=== PATIENT | female | born 1970 | race Caucasian/White ===

== ENCOUNTER 2017-08-20 19:05 | Emergency (ER) | payer OTHER ==
[~2017-08-20] VITALS: Ht 172.7 cm; Wt 132.4 kg
[~2017-08-20 19:05] MED LIST: ALPRAZOLAM; CARISOPRODOL 3350 MG; LISINOPRIL20 MG; LOPRESSOR; LORCET PLUS 7.51 TA1; PHENERGAN 25 MG25 M1 PO
[2017-08-20 19:59] LABS: URINE BILIRUBIN NEGATIVE (Negative); URINE BLOOD NEGATIVE (Negative); URINE CLARITY CLEAR; URINE COLOR YELLOW; URINE GLUCOSE-RANDOM NEGATIVE (Negative); URINE KETONES NEGATIVE (Negative); URINE LEUKOCYTES-REFLEX 1+ (Negative); URINE NITRITE-REFLEX NEGATIVE (Negative); URINE PROTEIN NEGATIVE (Negative); URINE SPECIFIC GRAVITY <= 1.005 (1.005-1.030); URINE UROBILINOGEN 0.2 E.U./dl (0.2-1.0)
[2017-08-20 20:13] LABS: ABSOLUTE BASOPHILS 0.1 thou/uL (0.0-0.2); ABSOLUTE EOSINOPHILS 0.1 thou/uL (0.0-0.7); ABSOLUTE LYMPHOCYTES 2.8 thou/uL (0.8-5.3); ABSOLUTE MONOCYTES 0.6 thou/uL (0.0-1.2); ABSOLUTE NEUTROPHILS 6.1 thou/uL (1.6-8.1); BASOPHILS 0.5 %; EOSINOPHILS 1.1 %; HEMATOCRIT 43.3 % (37.0-47.0); HEMOGLOBIN 14.7 gm/dL (12.0-15.0); LYMPHOCYTES 28.8 %; MCH 29.4 pg (26.0-34.0); MCHC 33.9 g/dL (28.0-37.0); MCV 86.9 fL (80.0-100.0); MONOCYTES 6.4 %; MPV 10.4 fl. (7.2-11.1); NUCLEATED RBCS 0 /100WBC; PLATELET COUNT* 209 thou/uL (150-400); POLYS 63.2 %; RBC 4.99 mil/uL (4.20-5.00); RDW-CV 13.5 % (10.5-14.5); WBC 9.7 thou/uL (4.0-11.0)
[2017-08-20 20:17] LABS: CRYSTALS None Seen /LPF (None Seen); MUCUS None Seen strn/LPF (None Seen); SQUAMOUS >10 Many /LPF (0-3)
[2017-08-20 20:18] LABS: CASTS None Seen /LPF (None Seen); URINE RBC None Seen /HPF (0-2); URINE WBC-REFLEX 0-5 Rare /HPF (0-5)
[2017-08-20 20:21] LABS: INR 1.1; PROTIME 10.5 Seconds (9.20-11.50)
[2017-08-20 20:22] LABS: ANION GAP 11 mmol/L (7-16); BUN 12 mg/dL (7-18); CALCIUM 9.1 mg/dL (8.5-10.1); CHLORIDE 100 mmol/L (98-107); CO2 28 mmol/L (21-32); CREATININE 0.7 mg/dL (0.6-1.3); GLUCOSE 101 mg/dL (70-99); POTASSIUM 3.4 mmol/L (3.5-5.1); SODIUM 139 mmol/L (136-145)
[2017-08-20 20:32] LABS: ALKALINE PHOSPHATASE 102 U/L (46-116); LIPASE 72 U/L (73-393); NT-PRO BRAIN NAT PEPTIDE 24 pg/mL (<300); SGOT 30 U/L (15-37); SGPT 82 U/L (30-65); TOTAL BILIRUBIN 0.4 mg/dL (<0.1-1.0); TROPONIN-I LEVEL <0.06 ng/mL (<0.06)
[2017-08-20 21:02] VITALS: BP 144/88
--- NOTE | 2017-08-21 13:01 | EKG ---
[place] [address] ELECTROCARDIOGRAM REPORT Name: FRANK PIKE Room: [facility]#: [id number] Admission: 08/20/17 Attend Phys: Discharge: 08/20/17 Date of : 72 Report #: [id number] THIS REPORT FOR: //name// [facility] ED Test Date: 2017-08-20 Test Time: 19:10:44 Pat Name: FRANK PIKE Department: Room: Gender: F Transfer Station Operator: KGRISGBY : 1970 Requested By: Alisha Blood Order Number: [id number] MD: Willi Arellano Measurements Intervals [place] Rate: 94 P: 33 SD: 61 QRS: 15 QRSD: 97 T: 3 QT: 364 QTc: 456 Interpretive Statements Sinus rhythm Short SD interval Artifact in lead(s) I,II,aVR,aVL,aVF No previous ECG available for comparison Electronically Signed On 08-21-2017 13:00:57 GASOLINE ATTENDANT by Willi Arellano [email or web address] <ELECTRONICALLY SIGNED> By: Willi Arellano MD, [facility] 08/21/17 1300 1910 09 Willi Arellano MD, FACC /EPI
== END 2017-08-20 21:02 | disposition home or self-care (01) ==
LOC: M.ERS 19:05
PROVIDERS: Emergency Medicine
DX: F41.9 Anxiety disorder, unspecified (principal); R07.89 Other chest pain; I10 Essential (primary) hypertension; F17.200 Nicotine dependence, unspecified, uncomplicated; Z88.1 Allergy status to other antibiotic agents

== ENCOUNTER 2019-03-06 06:06 | Inpatient (IN) | payer OTHER ==
[2019-02-23 09:20] LABS: ABSOLUTE BASOPHILS 0.1 thou/uL (0.0-0.2); ABSOLUTE EOSINOPHILS 0.1 thou/uL (0.0-0.7); ABSOLUTE LYMPHOCYTES 2.3 thou/uL (0.8-5.3); ABSOLUTE MONOCYTES 0.5 thou/uL (0.0-1.2); ABSOLUTE NEUTROPHILS 4.5 thou/uL (1.6-8.1); EOSINOPHILS 1.5 %; HEMATOCRIT 43.4 % (37.0-47.0); HEMOGLOBIN 14.8 gm/dL (12.0-15.0); LYMPHOCYTES 30.5 %; MCH 29.7 pg (26.0-34.0); MCHC 34.2 g/dL (28.0-37.0); MCV 86.7 fL (80.0-100.0); MONOCYTES 7.3 %; MPV 10.5 fl. (7.2-11.1); NUCLEATED RBCS 0 /100WBC; PLATELET COUNT* 199 thou/uL (150-400); POLYS 59.7 %; RBC 5.01 mil/uL (4.20-5.00); RDW-CV 14.1 % (10.5-14.5); WBC 7.5 thou/uL (4.0-11.0)
[2019-02-23 09:30] LABS: CALCIUM 8.8 mg/dL (8.5-10.1); CREATININE 0.7 mg/dL (0.6-1.3); POTASSIUM 4.1 mmol/L (3.5-5.1)
[2019-02-23 09:31] LABS: APTT 28.5 Seconds (25.0-31.3); PROTIME 10.4 Seconds (9.20-11.50)
[2019-02-23 09:35] LABS: TOTAL BILIRUBIN 0.4 mg/dL (<0.1-1.0); TOTAL PROTEIN 7.8 g/dL (6.4-8.2)
[2019-02-23 09:50] LABS: LARGE PLATELETS OCCASIONAL; PLATELET ESTIMATE ADEQUATE
[2019-02-23 10:22] LABS: ESR (SEDRATE) 10 mm/hr (0-20)
--- NOTE | 2019-02-23 18:06 | EKG ---
[place] [address] ELECTROCARDIOGRAM REPORT Name: FRANK PIKE Room: [facility].#: [id number] Admission: Attend Phys: Willi Herrera DO Discharge: Date of : 72 Report #: [id number] THIS REPORT FOR: //name// [facility] Test Date: 2019-02-23 Test Time: 09:24:51 Pat Name: FRANK PIKE Department: Room: Gender: F Digital Media Strategist: : 1970 Requested By: Willi Herrera Order Number: [id number] Reading MD: Tommie Nickerson Measurements Intervals [place] Rate: 83 P: 11 NJ: 154 QRS: 23 QRSD: 82 T: 44 QT: 379 QTc: 446 Interpretive Statements Sinus rhythm Compared to ECG 08/20/2017 19:10:44 Short [place] interval no longer present Electronically Signed On 02-23-2019 18:05:47 CDT by Tommie Nickerson [email or web address] <ELECTRONICALLY SIGNED> By: Abbey Nickerson MD, [facility] 02/23/19 1805 0924 3 Abbey Nickerson MD, FACC /EPI
[2019-02-24 02:06] LABS: GLYCOHEMOGLOBIN (HGB A1C) 5.4 % (4.8-5.6)
[~2019-03-06] VITALS: Ht 172.7 cm; Wt 152.0 kg
--- NOTE | ~2019-03-06 | OP ---
[address] [address] OPERATIVE REPORT Name: FRANK PIKE Room: [facility].#: [id number] Admission: 03/06/19 Attend Phys: Willi Herrera DO Discharge: Date of : 72 Report #: [id number] THIS REPORT FOR: //name// CC: Francy Herrera DICTATED BY: Adriano Degroot DO DATE OF SERVICE: 03/06/2019 PREOPERATIVE DIAGNOSIS: Left knee severe degenerative joint disease. POSTOPERATIVE DIAGNOSIS: Left knee severe degenerative joint disease. SURGERY PERFORMED: Left total knee arthroplasty utilizing the Rich Persona total knee arthroplasty system with the following components: A size 9 left cruciate retained cemented femur, size E 5-degree cemented keeled natural tibia, a size 29-mm polyethylene 3 peg cemented patella and a size 10 medial congruent high molecular weight polyethylene articular spacer. SURGEON: Willi Herrera DO DANCE ARTIST: Adriano Degroot DO ANESTHESIA: General endotracheal anesthetic. ANTIBIOTICS: 900 mg of clindamycin given 30 minutes prior to incision. TOURNIQUET: 52 minutes at 300 mmHg. SPECIMENS: None. DRAINS: None. ESTIMATED BLOOD LOSS: 100 mL. COMPLICATIONS: None. DISPOSITION: Stable to PACU. INDICATIONS FOR PROCEDURE: The patient is a pleasant 49-year-old female, who has been followed in the outpatient orthopedic clinic for ongoing left knee pain that has been refractory to conservative measures of rest, ice, nonsteroidal anti-inflammatories, activity modification and corticosteroid injections for greater than 6 months. It was subsequently recommended that the patient undergo left total knee arthroplasty and therefore the risks, benefits, [place] [id number] OPERATIVE REPORT Name: FRANK PIKE Room: [facility].#: [id number] Admission: 03/06/19 Attend Phys: Willi Herrera DO Discharge: Date of : 72 Report #: [id number] options, alternatives, and indications were discussed with the patient. The risks include but not limited to damage to surrounding neurovascular structures, continued pain, continued bleeding, need for repeat surgery, wound dehiscence, infection, need for removal of total knee arthroplasty and placement of antibiotic spacer and prolonged IV antibiotics with complications of acute renal failure and C. difficile colitis, DVT, PE, as well as inherent complications of anesthesia. The patient assumed the risks and wished to proceed with surgery. OPERATIVE FINDINGS: Upon inspection of the intra-articular aspects of the knee, there was determined to have significant eburnated bone to the tricompartmental knee with loss of the posterior medial cartilage as well as hypertrophic synovitis, osteophytic lipping periarticularly and normal appearing effusion. DESCRIPTION OF PROCEDURE: The patient was seen in the preoperative holding area where consent was obtained and signed and then the left lower extremity was marked and initialed. The patient was transferred to the operative suite and placed supine on the operating room table. She was given the benefit of general endotracheal anesthetic and all bony prominences were well padded. A well-padded tourniquet was applied to the left upper thigh and then the left lower extremity was then sterilely prepped with a Hibiclens scrub for 10 minutes followed by alcohol rinse and then ChloraPrep x 2. The left lower extremity was then draped in normal sterile fashion. The left lower extremity was then placed into the Cayla total knee arthroplasty system and leg espitia well padded. A timeout then had indicating appropriate patient and procedure to be performed, operative site, preoperative antibiotics and operative surgeon. All in attendance were in agreement. Surgery began with elevation of the left lower extremity for approximately 5 minutes for exsanguination and insufflation of the tourniquet to 300 mmHg. Next, a midline incision was carried through the knee and subcutaneous tissues with a 10 blade scalpel to the level of the quadriceps tendon and medial aspect of the knee capsule. Next, a standard medial parapatellar arthrotomy was performed with a second scalpel and the patella was everted. The medial capsule was then released to approximate the mid portion of the tibia and the anterior horns of the medial and lateral meniscus were resected as well as anterior and posterior cruciate ligaments. Next, the patella was everted and the knee was hyperflexed to 130 degrees and then entry reamer was placed through the distal horn of the femur just medial to the direct midline of the trochlear groove in line with the femoral shaft. Next, an intramedullary distal femoral cutting block was placed into appropriate position. It was set to resect 9 mm off the distal femur and 5 degrees of valgus. This was held in position with appropriate pins. Distal femoral cut was subsequently made. A distal femur was then appropriately sized with the sizing guide and the 3-degree external rotation drill holes were subsequently drilled. The femur was sized to a size 9 femur and then the 4-in-1 cutting block was then malleted into appropriate position and held in position with pins. Then, the sequential cuts were then made in the [place] [id number] OPERATIVE REPORT Name: FRANK PIKE Room: [facility]#: [id number] Admission: 03/06/19 Attend Phys: Willi Herrera, DO Discharge: Date of : 72 Report #: [id number] block was then subsequently removed and all bony fragments were removed and the attention was directed to the tibia. The external tibial alignment guide was then placed into appropriate position with reference of the medial one-third of the tibial tubercle, tibial crest, center of the ankle and second metatarsal. This was held in appropriate position with appropriate slope and held in position with pins. The external tibial alignment guide was left in place and the proximal tibial cut was then made sequentially with care to protect the medial and lateral collateral ligaments as well as posterior capsule. Next, the alignment guide pins were subsequently removed and the tibial component was removed and then the 10 degree spacer block was placed into appropriate position with the alignment margret and this was determined to be symmetric cut with the gaps balance both medially and laterally in extension as well as flexion. Next, a spacer block was then subsequently removed and the knee was hyperflexed and then the tibia was sized to a size E tibia and held in position with 2 screws. Next, attention was directed to the femur and a size 9 cruciate retained femur trial was then placed in appropriate position and malleted into place. Next, a size 10 trial polyethylene spacer was placed in appropriate position. This allowed the knee to have full extension, flexion to 120 degrees until soft tissue apposition as well as stability mediolaterally with balanced gaps. Next, patella was then everted and cut in a freehand fashion and then measured to a size 29-mm diameter. The subsequent drill guide was then placed in appropriate position and the 3 peg drill holes were then placed and the trial patella was then placed and then this patella was then inverted and this was taken through full range of motion with adequate tracking within the trochlear groove. Next, all trial components were then subsequently removed and then all bony surfaces were then thoroughly washed with the Pulsavac system. Cement was then mixed and a small portion was placed on to the backside of the components and was then pressurized into the interstices of the tibial and femoral bony surfaces and then the final components were then impacted into place. Then, a size 12 polyethylene spacer was used to compress as well as appropriate patellar compression device was placed on the patella. Next, all the excess cement was then subsequently removed and then the knee was then thoroughly washed with Pulsavac and then topical TXA was placed into the knee and allowed to sit for 5 minutes, then subsequently removed. Once cement had hardened, trial with a 10-mm polyethylene spacer was then performed and allowed full extension, full flexion 120 degrees as well as a stable gaps both medially and laterally. This was selected. The trial was then removed. The knee was hyperflexed and then the final 10-mm medial congruent polyethylene spacer was placed and impacted into position on a cleansed and dried tibial tray. Next, the knee was then thoroughly irrigated again and a #1 Vicryl was used to close the quad and capsular tissue in a [id number]-no-[id number] interrupted fashion followed by a running #1 Stratafix. Next, the capsule and subcutaneous tissue was then thoroughly washed with Pulsavac and then skin was closed utilizing #1 Vicryl deep [id number]-lv-[id number] interrupted sutures followed by 2-0 inverted interrupted subcutaneous stitches followed by running 3-0 V-Loc subcuticular stitch. As well as prior to closure, PRP was sprayed onto the [place] [id number] OPERATIVE REPORT Name: FRANK PIKE Room: [facility] Lisette#: [id number] Admission: 03/06/19 Attend Phys: Willi Herrera DO Discharge: Date of : 72 Report #: [id number] knee and allowed to gel for 5 minutes. Then Dermabond was then applied and then sterile dressing of Flex Silver was applied, then MITCH hose. Anesthesia was then reversed. The patient was transported back to PACU in normal stable condition. Dr. Herrera was present for all critical aspects of the case. By: [id number] Herrera DO /nt
[~2019-03-06 06:06] MED LIST changes: -ALPRAZOLAM; +CALCIUM + D SO1 EACH PO; +CHLORZOXAZONE500 MG PO; +CRANBERRY200 MG PO; +CRESTOR10 MG PO; +ENDOCET 10-3251 EACH PO; +FIBER0.4 GM PO; +FLONASE 0.05%50 MCG NASAL; -LISINOPRIL20 MG; +LISINOPRIL20 MG PO; +MULTIPLE VITAM1 EAC2 PO; +OMEGA 3 1,0001 EACH PO; +XANAX1 MG PO; +ZANTAC 150MG T150 MG PO
[2019-03-06 06:30] VITALS: BP 144/79
[2019-03-06 14:57] VITALS: BP 152/71
[2019-03-07 00:14] VITALS: BP 124/54
[2019-03-07 03:35] VITALS: BP 118/64
[2019-03-07 04:29] LABS: HEMATOCRIT 34.2 % (37.0-47.0); HEMOGLOBIN 11.5 gm/dL (12.0-15.0)
[2019-03-07 07:30] VITALS: BP 154/78
[2019-03-07 16:00] VITALS: BP 151/80
[2019-03-07 20:00] VITALS: BP 135/67
[2019-03-08 03:06] LABS: HEMATOCRIT 31.5 % (37.0-47.0); HEMOGLOBIN 10.9 gm/dL (12.0-15.0)
[2019-03-08 07:30] VITALS: BP 138/74
[2019-03-08 19:45] VITALS: BP 92/65
[2019-03-09] VITALS: BP 119/58
[2019-03-09 04:00] VITALS: BP 103/55
[2019-03-09 08:00] VITALS: BP 126/63
[2019-03-09] MEDS ORDERED: ENDOCET 10-3251 EACH PO (10:59)
[2019-03-09] MEDS ORDERED: OXYCODONE HCL 55 MG PO (11:04)
[2019-03-09] MEDS ORDERED: ELIQUIS5 MG PO (11:04)
[2019-03-09 11:14] VITALS: BP 126/63
[2019-03-09] MEDS ORDERED: GABAPENTIN 100100 MG PO (11:31)
== END 2019-03-09 12:14 | disposition home or self-care (01) | DRG 470 ==
LOC: M.SUR 06:06 → M.ORTHSURG 14:04
PROVIDERS: Orthopaedic Surgery; ADMIT Internal Medicine
PROC: 0SRD0J9 Replacement of Left Knee Joint with Synthetic Substitute, Cemented, Open Approach (ICD-10-PCS; principal; 2019-03-06)
DX: M17.11 Unilateral primary osteoarthritis, right knee (principal); D62 Acute posthemorrhagic anemia; Z68.43 Body mass index [BMI] 50.0-59.9, adult; I10 Essential (primary) hypertension; E78.5 Hyperlipidemia, unspecified; K21.9 Gastro-esophageal reflux disease without esophagitis; E66.01 Morbid (severe) obesity due to excess calories; R00.0 Tachycardia, unspecified; Z88.1 Allergy status to other antibiotic agents; Z90.49 Acquired absence of other specified parts of digestive tract

== ENCOUNTER → 2020-05-22 | Outpatient (CLI) | payer OTHER ==
[~2020-05-22] MED LIST changes: +ELIQUIS5 MG PO; +FLEXERIL PO; +GABAPENTIN 100100 MG PO; +HYDRALAZINE 2525 MG PO; +INDERAL LA120 M1 PO; +NEURONTIN 300M300 M2 PO; +OXYCODONE HCL 55 MG PO; +PROTONIX40 M2 PO; +TOPAMAX 25 MG T25 MG PO; +ZESTRIL40 MG PO
--- NOTE | 2020-05-22 10:19 | EKG ---
[place] [address] ELECTROCARDIOGRAM REPORT Name: PIKEFRANK MIRZA Room: [facility]#: [id number] Admission: 05/22/20 Attend Phys: Willi Herrera DO Discharge: Date of : 72 Date of Service: 05/22/20 1008 Report #: [id number] THIS REPORT FOR: //name// [facility] Test Date: 2020-05-22 Test Time: 10:08:45 Pat Name: FRANK PIKE Department: Room: Gender: F Residential Property Consultant: : 1970 Requested By: Willi Herrera Order Number: [id number] Reading MD: Willi Arellano Measurements Intervals Gerald Rate: 75 P: 19 NM: 151 QRS: 34 QRSD: 86 T: 46 QT: 400 QTc: 447 Interpretive Statements Sinus rhythm Compared to ECG 02/23/2019 09:24:51 No significant changes Electronically Signed On 05-22-2020 10:19:01 RAILROAD SIGNAL TECHNICIAN by Willi Arellano [email or web address] <ELECTRONICALLY SIGNED> By: Willi Arellano MD, [facility] 05/22/20 1019 D: 121007 07 Willi Arellano MD, FACC /EPI
[2020-05-22 10:43] LABS: ABSOLUTE BASOPHILS 0.1 thou/uL (0.0-0.2); ABSOLUTE EOSINOPHILS 0.1 thou/uL (0.0-0.7); ABSOLUTE LYMPHOCYTES 1.9 thou/uL (0.8-5.3); ABSOLUTE MONOCYTES 0.6 thou/uL (0.0-1.2); ABSOLUTE NEUTROPHILS 4.2 thou/uL (1.6-8.1); BASOPHILS 0.9 %; HEMATOCRIT 42.5 % (37.0-47.0); HEMOGLOBIN 14.5 gm/dL (12.0-15.0); LYMPHOCYTES 27.4 %; MCH 29.4 pg (26.0-34.0); MCHC 34.2 g/dL (28.0-37.0); MONOCYTES 8.4 %; MPV 9.6 fl. (7.2-11.1); NUCLEATED RBCS 0 /100WBC; PLATELET COUNT* 235 thou/uL (150-400); POLYS 61.3 %; RBC 4.94 mil/uL (4.20-5.00); RDW-CV 14.3 % (10.5-14.5); WBC 6.9 thou/uL (4.0-11.0)
[2020-05-22 10:56] LABS: APTT 28.8 Seconds (25.0-31.3); PROTIME 10.4 Seconds (9.20-11.50)
[2020-05-22 10:57] LABS: ALBUMIN 3.6 g/dL (3.4-5.0); CALCIUM 8.4 mg/dL (8.5-10.1); CREATININE 0.7 mg/dL (0.6-1.3); POTASSIUM 4.2 mmol/L (3.5-5.1); TOTAL BILIRUBIN 0.4 mg/dL (<0.1-1.0); TOTAL PROTEIN 7.6 g/dL (6.4-8.2)
[2020-05-22 12:06] LABS: ESR (SEDRATE) 15 mm/hr (0-20)
[2020-05-23 02:07] LABS: GLYCOHEMOGLOBIN (HGB A1C) 5.4 % (4.8-5.6)
== END ==
LOC: M.LAB 05-21 07:51
PROVIDERS: ATTEND Orthopaedic Surgery
DX: Z01.812 Encounter for preprocedural laboratory examination (principal); Z20.828 Contact with and (suspected) exposure to other viral communicable diseases; M17.11 Unilateral primary osteoarthritis, right knee; I49.9 Cardiac arrhythmia, unspecified

== ENCOUNTER 2020-05-27 06:22 | Observation (INO) | payer OTHER ==
[~2020-05-27] VITALS: Ht 172.7 cm; Wt 168.7 kg
--- NOTE | ~2020-05-27 | OP ---
[facility] [address] [place] [address] OPERATIVE REPORT Name: FRANK PIKE Room: [address] Carrie Knox#: [id number] Admission: 05/27/20 Attend Phys: Patrick Saez Discharge: Date of : 72 Report #: [id number] THIS REPORT FOR: cc: Francy Stewart Christine L. DO ~ Willi Herrera DO DICTATED BY: Tanner Betancourt DO DATE OF SERVICE: 05/27/2020 PREOPERATIVE DIAGNOSES: 1. Right knee advanced degenerative joint disease. 2. Morbid obesity with a BMI of 56.6. POSTOPERATIVE DIAGNOSES: 1. Right knee advanced degenerative joint disease. 2. Morbid obesity with a BMI of 56.6. PROCEDURE PERFORMED: Right total knee arthroplasty utilizing Rich Persona with the following components: 1. A size 8 narrow cruciate retained femoral component. 2. A size E tibial baseplate. 3. A 29 mm all poly patella. 4. A 12 mm medial congruent ultra-high molecular weight polyethylene component. 5. Two bags of Rich Biomet bone cement with gentamicin. SURGEON: Willi Herrera DO ANIMAL TRAINER SUPERVISOR: Tanner Betancourt DO and Zeeshan Sorensen DO ANESTHESIA: General. ESTIMATED BLOOD LOSS: 100 mL. ANTIBIOTICS: Ancef 3 g IV preoperatively. COMPLICATIONS: None. SPECIMENS: None. CONDITION: The patient is stable to PACU. INDICATIONS FOR PROCEDURE: This is a pleasant 50-year-old female who has been seen and examined in the outpatient orthopedic clinic with regards to right knee pain. Radiographs demonstrate advanced degenerative joint disease with joint [facility] [address] [place] [address] OPERATIVE REPORT Name: FRANK PIKE Room: [address] [place].#: [id number] Admission: 05/27/20 Attend Phys: Patrick Saez Discharge: Date of : 72 Report #: [id number] space narrowing, osteophytic lipping and subchondral sclerosis. Conservative treatments were attempted including activity modification, anti-inflammatories and intra-articular steroid injections. She continued to have debilitating knee pain. She had a previous left total knee arthroplasty and recovered well from this. Right total knee arthroplasty was discussed with the patient. The risks, benefits, alternatives and complications were discussed. The patient wished to proceed. DESCRIPTION OF PROCEDURE: The patient was seen and examined in the preoperative holding area. The correct operative extremity was marked. Written consent was obtained. The patient was then transferred to the operating room and placed supine on the operating table. She was given the benefit of general anesthesia. A well-padded tourniquet was placed on the right thigh. Right lower extremity was prepped and draped in usual sterile fashion. Timeout was performed to verify the correct patient, procedure and operative extremity and all were in agreement. Right lower extremity was then exsanguinated with the Esmarch and the tourniquet was inflated to 300 mmHg, which remained inflated for 60 minutes. Procedure then began with a standard midline incision over the right knee. Sharp dissection was carried down to the level of the joint capsule. A medial parapatellar arthrotomy was then performed. A periosteal sleeve was developed off of the medial aspect of the proximal tibia. The anterior horn of the medial and lateral menisci were excised. The patellar fat pad was excised as well. The knee was then placed in a flexed position. The patella was everted. A femoral drill was then used to access the intramedullary canal and the intramedullary guide margret was inserted. This was pinned into position with 5 degrees of valgus measuring 12 mm cut off to the distal femur. The distal femur cut was performed in a standard fashion. Next, the AP sizer was placed on the femur. This was drilled into 3 degrees of external rotation based off the posterior condylar axis. This was then sized to a size 8. The size 8, 4-in-1 cutting block was pinned into position and the anterior, posterior and chamfer cuts were performed in the standard fashion. The cutting block was bleeding. All excess bone was removed. Attention was then turned to the tibia. The extramedullary tibial guide was then placed and pinned into appropriate position measuring 10 mm cut off with a high lateral side. The tibial cut was then performed in the standard fashion and all excess bone was removed. The remainder of the medial and lateral menisci were then excised. The remainder of the anterior and posterior cruciate ligaments was then excised as well. The knee was brought out into extension and a size 10 spacer block was inserted. This was noted to have full range of motion and the knee was well balanced in both flexion and extension. The knee was then placed back into the flexed position. The tibia was trialed and the size E was noted to have the most appropriate fit. This was pinned into position. Trial femur was inserted. Trial size 12 poly was inserted. The knee was again taken through range of motion and noted to have full range of motion and was well balanced. Attention was then turned to the patella. The patella was cut [place] [address] OPERATIVE REPORT Name: FRANK PIKE Room: 150-1 [facility] WinOrin#: [id number] Admission: 05/27/20 Attend Phys: Patrick Saez Discharge: Date of : 72 Report #: [id number] measured to a size 29. The peg holes were drilled and the trial patellar button was inserted. This was noted to track nicely. The femoral peg holes were then drilled. The trial femur was removed. The tibia was reamed and broached in the standard fashion. Trial tibia was removed. The knee was then thoroughly irrigated with pulsatile lavage. Cement was mixed on the back table. The final components were then cemented into position in the standard fashion. All excess cement was removed. The size 12 trial was then placed and the knee was held into extension to allow the cement to harden. The size 12 trial poly was again trialed and noted to have full range of motion. The knee was well balanced. The final size 12 poly was then inserted. The tourniquet was deflated. There was minimal bleeding. The knee was then injected with 120 mL of the orthopedic cocktail. The capsule was closed with a #1 Vicryl in an interrupted ihsvdf-ic-kzcpf fashion followed by running Stratafix suture. A #1 Vicryl was used for a deep subcutaneous layer followed by 2-0 Vicryl and a running 3-0 Stratafix suture. Skin glue was then applied. Sterile dressing was applied. The patient was then awakened from anesthesia and transferred to the PACU in stable condition. The patient tolerated the procedure well. There were no complications. By: [id number] Herrera DO /nt
[2020-05-27 11:30] VITALS: BP 140/89
[2020-05-27 18:19] VITALS: BP 126/59
[2020-05-27 21:26] VITALS: BP 100/51
[2020-05-28] VITALS (7 sets, daily range): BP systolic 101–136; BP diastolic 49–62
[2020-05-28 04:33] LABS: HEMATOCRIT 35.5 % (37.0-47.0); HEMOGLOBIN 11.8 gm/dL (12.0-15.0); MCH 28.7 pg (26.0-34.0); MCHC 33.1 g/dL (28.0-37.0); MCV 86.8 fL (80.0-100.0); MPV 9.2 fl. (7.2-11.1); RBC 4.09 mil/uL (4.20-5.00); RDW-CV 14.7 % (10.5-14.5); WBC 12.9 thou/uL (4.0-11.0)
[2020-05-28 04:52] LABS: ALBUMIN 2.9 g/dL (3.4-5.0); CALCIUM 7.5 mg/dL (8.5-10.1); CREATININE 0.7 mg/dL (0.6-1.3); POTASSIUM 4.1 mmol/L (3.5-5.1); TOTAL BILIRUBIN 0.4 mg/dL (<0.1-1.0); TOTAL PROTEIN 6.2 g/dL (6.4-8.2)
[2020-05-28] MEDS ORDERED: ELIQUIS5 MG PO (08:38)
[2020-05-28] MEDS ORDERED: OXYCODONE HCL 55 MG PO (08:38)
== END 2020-05-28 14:53 | disposition home or self-care (01) ==
LOC: M.ORTHSURG → M.3W 10:53 → M.TBA 10:53 → M.ORTHSURG 12:33 → M.3W 18:14
PROVIDERS: Internal Medicine; ADMIT Internal Medicine; ATTEND Internal Medicine
DX: M17.11 Unilateral primary osteoarthritis, right knee (principal); I10 Essential (primary) hypertension; K21.9 Gastro-esophageal reflux disease without esophagitis; G43.909 Migraine, unspecified, not intractable, without status migrainosus; M54.30 Sciatica, unspecified side; E78.5 Hyperlipidemia, unspecified; N95.9 Unspecified menopausal and perimenopausal disorder; E66.01 Morbid (severe) obesity due to excess calories; F41.9 Anxiety disorder, unspecified; F17.210 Nicotine dependence, cigarettes, uncomplicated; Z79.899 Other long term (current) drug therapy